=== PATIENT | female | born 1970 | race Caucasian/White ===

== ENCOUNTER 2017-02-13 20:29 | Emergency (ER) | payer OTHER ==
[~2017-02-13] VITALS: Ht 149.9 cm; Wt 52.2 kg
--- NOTE | ~2017-02-13 | CR2 ---
[facility] A Service of [facility] & [facility] RADIOLOGY TEXT RESULTS PATIENT: HANS HUSTON LOCATION: [facility] : 68 UNIT #: [id number] AGE: [address]: Parker Tim MD SEX: F ORDER DR: [id number] [facility] [address] [place], [place] [address] [id number] E MR#: [id number] Acc #: [id number] NAME: HANS HUSTON : 1970 SEX: F STUDY DATE/TIME: 02/14/2017 00:58 UNIT: [facility] ROOM: STUDY DESCRIPTION: CR Abdomen Acute Series Attending Physician: Robbin Tim M.D. Ordering Physician: Ed Doc Tres Ayers Primary Care Physician: No Primary Care Physician MEDICAL IMAGING REPORT This report is preliminary unless electronic signature is present EXAM Acute abdomen series, 02/14 at 00:58. INDICATIONS Abdominal pain with nausea and vomiting and weakness for 3 days. FINDINGS Upright view of the chest was obtained in addition to flat and upright views of the abdomen. No comparison radiographs. The cardiac mediastinal contours are normal. Lungs are clear. There is no pneumothorax. Cholecystectomy clips are present. The bowel gas pattern is nonspecific, but nonobstructive. There is a small bowel gas suggesting an ileus. No free air. Calcifications in the pelvis are likely phleboliths. IMPRESSION 1. No active disease in the chest. 2. No bowel obstruction or free air. There is a mild ileus pattern in the small bowel. 3. Cholecystectomy. Dictated by... Bonilla Sequeira Jr., M.D. THIS IS AN ELECTRONICALLY VERIFIED REPORT Bonilla Sequeira Jr., M.D. at 02/15/2017 4:56 AM TAMIKO/marin TD: 02/14/2017 21:55 JOB #: [id number] MEDICAL IMAGING REPORT Page 1 of 1 COPY
--- NOTE | ~2017-02-13 | CT2 ---
[facility] A Service of [facility] / [facility] RADIOLOGY TEXT RESULTS PATIENT: HANS HUSTON LOCATION: [facility] : 68 UNIT #: [id number] AGE: [address]: Parker Tim MD SEX: F ORDER DR: [id number] [facility] [address] [place], [place] [address] [id number] E MR#: [id number] Acc #: [id number] NAME: HANS HUSTON : 1970 SEX: F STUDY DATE/TIME: 02/14/2017 05:18 UNIT: [facility] ROOM: STUDY DESCRIPTION: CT Abd and Pelv W Cont Attending Physician: Robbin Tim M.D. Ordering Physician: Ed Javi Ayers M.D. Primary Care Physician: No Primary Care Physician MEDICAL IMAGING REPORT This report is preliminary unless electronic signature is present EXAM CT of abdomen and pelvis, 02/14/2017 at 05:18. INDICATIONS Upper abdominal pain on the left side for 3 days with nausea, vomiting, diarrhea. Patient feverish as well. TECHNIQUE Axial images were obtained through the abdomen and pelvis following oral and IV contrast administration. Multiplanar reformats were obtained. This CT exam was performed with one or more of the following radiation dose reduction techniques: automatic exposure control, adjustment of mA and/or kV according to patient size, and iterative reconstruction. COMPARISON Comparison made with 01/13/2014. FINDINGS ABDOMEN: There is some mild atelectasis in the lung bases. The gallbladder is surgically absent. Liver has a cirrhotic appearance and there is diffuse fatty infiltration. Spleen remains enlarged. Remaining solid organs are normal. No ascites is identified. The GI tract is normal. No free fluid is seen. PELVIS: A fat-containing supraumbilical hernia is again seen. The defect in the fascia now measures about 2.9 x 1.7 cm. It does appear slightly larger in the interval. Urinary bladder is decompressed. The GI tract including the appendix is within normal limits. No free fluid. IMPRESSION 1. Cirrhosis with fatty infiltration of the liver. No focal liver lesion is seen. 2. Persistent splenomegaly. [facility] A Service of [facility] & [facility] RADIOLOGY TEXT RESULTS PATIENT: HANS HUSTON LOCATION: [facility] : 68 UNIT #: [id number] AGE: [address]: Parker Tim MD SEX: F ORDER DR: 3. Cholecystectomy 4. Interval resolution of ascites. 5. Normal GI tract, including the appendix. 6. 2.3 cm right ovarian cyst. 7. Interval enlargement of a supraumbilical midline ventral wall hernia containing abdominal fat. Dictated by... Bonilla Sequeira Jr., M.D. THIS IS AN ELECTRONICALLY VERIFIED REPORT Bonilla Sequeira Jr., M.D. at 02/15/2017 4:58 AM TAMIKO/marin TD: 02/15/2017 00:11 JOB #: [id number] MEDICAL IMAGING REPORT Page 1 of 1 COPY
[~2017-02-13 20:29] MED LIST: ALDACTONE100 MG PO; CELEXA20 MG PO; CIPRO PO; EFFEXOR75 M1 PO; FUROSEMIDE40 MG PO; KLOR-CON PO; LACTULOSE10 G/15 M1 PO; LASIX PO; LEVAQUIN PO; MAG-OX 400400 M1 PO; MAGNESIUM400 MG PO; OXYCODONE HCL5 M1 PO; OXYCODONE HCL5 MG PO; OXYCONTIN PO; POTASSIUM CHLO10 ME1 PO; PRILOSEC20 M1 PO; REMERON PO; ROXICODONE5 MG PO; SPIRONOLACTONE100 MG PO
[2017-02-13 21:25] LABS: BASOPHIL# 0.1 X10e3 (0-0.3); BASOPHIL% 1.1 % (0-2.5); EOSINOPHIL# 0.2 X10e3 (0-0.7); EOSINOPHIL% 2.7 % (0.0-7.0); HEMATOCRIT 46.9 % (35.0-45.0); HEMOGLOBIN 15.8 gm/dL (12.0-16.0); LYMPHOCYTE# 2.5 X10e3 (1.0-3.5); MEAN CELL VOLUME 101.4 FL (83-96); MEAN CORPUSCULAR HEMOGLOBIN 34.2 PG (28-34); MEAN CORPUSCULAR HGB CONC 33.7 g/dL (30-36); MEAN PLATELET VOLUME 7.5 FL (6.5-11.5); MONOCYTE# 0.5 X10e3 (0-1.0); MONOCYTE% 6.4 % (3.0-12.0); NEUTROPHIL# 4.7 X10e3 (1.5-7.1); NEUTROPHIL% 58.8 % (40-75); PLATELET COUNT 180 X10e3 (140-420); RED BLOOD COUNT 4.62 X10e (3.90-5.30); RED CELL DISTRIBUTION WIDTH 14.2 % (11.0-15.5)
[2017-02-13 21:31] LABS: DIFF IND NO
[2017-02-13 21:56] LABS: URINE SOURCE CLEAN CATCH
[2017-02-13 21:57] LABS: ALBUMIN SERUM 4.2 g/dL (3.5-5.0); ALKALINE PHOSPHATASE 97 U/L (32-92); ALT (SGPT) 35 U/L (10-40); AMYLASE 18 U/L (0-46); AST (SGOT) 97 U/L (10-42); BILIRUBIN, DIRECT 0.4 mg/dL (0.0-0.2); BILIRUBIN,INDIRECT 1.1 mg/dL (0.0-0.9); BILIRUBIN,TOTAL 1.5 mg/dL (0.2-2.0); BLOOD UREA NITROGEN <5 mg/dL (9-23); CALCIUM SERUM 9.9 mg/dL (8.4-10.2); CARBON DIOXIDE 30 mmol/L (22-31); CHLORIDE 99 mmol/L (100-111); CREATININE SERUM 0.5 mg/dL (0.6-1.4); GLOM FILT RATE Estimated 115.3 mL/min (>60); GLUCOSE FASTING 112 mg/dL (70-110); LIPASE 23 U/L (22-51); POTASSIUM 3.3 mmol/L (3.5-5.1); PROTEIN TOTAL SERUM 8.5 g/dL (6.0-8.3); SODIUM 141 mmol/L (135-145)
[2017-02-13 22:05] LABS: URINE APPEARANCE CLEAR; URINE BILIRUBIN NEG (NEG); URINE BLOOD NEG (NEG); URINE COLOR YELLOW; URINE GLUCOSE NEG (NEG); URINE KETONE NEG (NEG); URINE LEUKOCYTE ESTERASE TRACE (NEG); URINE NITRATE NEG (NEG); URINE PROTEIN NEG (NEG); URINE SPECIFIC GRAVITY 1.006 (1.003-1.035)
[2017-02-13 22:07] LABS: URBCS1 AUWI 0-2 /[HPF] (0-2); URINE BACTERIA AUWI NEG (NEGATIVE)
[2017-02-13 22:17] LABS: CULTURE INDICATED? NO; URINE SQUAMOUS EPITHELIAL CELL FEW /[HPF]
== END 2017-02-14 06:20 | disposition home or self-care (01) ==
LOC: CED 20:29
DX: K56.7 Ileus, unspecified (principal); K70.30 Alcoholic cirrhosis of liver without ascites; F17.210 Nicotine dependence, cigarettes, uncomplicated; Z90.49 Acquired absence of other specified parts of digestive tract; Z88.5 Allergy status to narcotic agent; Z98.51 Tubal ligation status
CPT/HCPCS: 36415; 74022; 74177; 80048; 80076; 81003; 82150; 83690; 84703; 85025; 96361; 96374; 96375; 96376; 99284; J2270; J2405; J2765; Q9967